=== PATIENT | male | born 1980 | race Caucasian/White ===

== ENCOUNTER 2022-12-06 13:15 | Outpatient (RCR) | payer OTHER, SELFPAY ==
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
== END 2023-02-20 11:12 | disposition home or self-care (01) ==
PROVIDERS: Visit Provider Family Medicine
DX: M54.2 Cervicalgia (principal); Z51.89 Encounter for other specified aftercare
CPT/HCPCS: 97110; 97140; 97162

== ENCOUNTER 2024-02-05 05:18 | Emergency (ER) | payer BC, SELFPAY ==
[2024-02-05 05:21] VITALS: BP 148/94; PULSE 93; RESP 16; TEMP 36.6; O2SAT 98; BMI 22.4
--- NOTE | 2024-02-05 05:36 | CRLHL7_ITS ---
For Patients: As a result of the Century Cures Act, medical imaging exams and procedure reports are released immediately into your electronic medical record. You may view this report before your referring provider. If you have questions, please contact your health care provider. INDICATION: Left-sided chest pain COMPARISON: March 28, 2023 TECHNIQUE: PA and lateral views of the chest were acquired FINDINGS: TUBES AND LINES: None. HEART AND MEDIASTINUM: The heart size is normal. The mediastinal contour appears normal for patient age. LUNGS AND PLEURAL SPACES: The lungs appear normal.The pleural spaces are unremarkable. OSSEOUS STRUCTURES: Age-appropriate appearance. No acute focal finding. IMPRESSION: No evidence of active pulmonary disease. Dictated by Oleg Randle MD @ 02/05/2024 5:59:52 AM (Electronically Signed)
--- NOTE | 2024-02-05 05:45 | ED.CHESTPAIN ---
HPI - Chest Pain General Date Seen: 02/05/24 Chief Complaint: Chest Pain Stated Complaint: Chest pain down arm Time Seen by Provider: 02/05/24 05:26 Source: patient Mode of arrival: ambulatory Limitations: no limitations History of Present Illness HPI narrative: Patient is a 43-year-old male presenting to the emergency department for chest pain. States chest pain started around 05:00. It is in his left chest and radiates down his left arm. Describes is the dull sensation mostly other than a stabbing sensation to his left upper trapezius region. Denies having symptoms like this before although he has had chest pain related to anxiety in the past. Does state now he is feeling some symptoms in his right chest also but he thinks that is more of anxiety. Initially was having some shortness of breath that has since resolved. No history of blood clots. Has not noticed any lower extremity swelling. Denies hemoptysis. Has had a cough recently but states around this family is having some upper respiratory in symptoms. The cough has since resolved. Denies any hormone use or recent surgeries. Denies fevers, chills, headache, lightheadedness, dizziness, weakness, numbness, abdominal pain, diarrhea, constipation. No other concerns noted Related Data Home Medications ?Medication ?Instructions ?Recorded ?Confirmed tadalafil .ROUTE 02/05/24 Allergies Allergy/AdvReac Type Severity Reaction Status Date / Time Penicillins Allergy Unknown Verified 04/05/23 10:56 Review of Systems Status of ROS Reports: 10 or more systems reviewed and unremarkable except as noted in History and below [facility] Social History Smoking Status: Never smoker Do you use any of these nicotine containing products: None Second hand tobacco smoke exposure: No Non-prescribed substance use: denies use Exam Narrative Exam Narrative: Const: Well-nourished, Well-developed, in mild distress Eyes: PERRL, no conjunctival injection, and symmetrical lids HENT: Atraumatic external nose and ears. Moist mucous membranes. Neck: Symmetric, trachea midline, No thyromegaly. CVS: RRR, No murmurs or gallops. Peripheral pulses 2+ and equal in all extremities RESP: Unlabored respiratory effort. Clear to auscultation bilaterally. GI: Nontender/Nondistended, No rebound or guarding. MSK:Extremities w/o deformity, Normal Active ROM Skin: Warm, Dry. No rashes or lesions. Neuro: Normal Muscle tone, No focal neurological deficits. Psych: Awake, Alert, & Oriented x3. Appropriate mood and affect. Const Vital Signs, click to edit/add: Vital Signs - 24 hr 02/05/24 05:21 02/05/24 07:44 Temperature 97.9 F Pulse Rate [Pulse Oximeter] 93 74 Respiratory Rate 16 16 Blood Pressure [Right Upper Arm] 148/94 H 125/76 Pulse Oximetry 98 97 Oxygen Delivery Method Room Air Room Air Course Vital Signs Vital signs: Initial Vital Signs Temperature 97.9 F 02/05/24 05:21 Temperature Source Temporal Artery Scan 02/05/24 05:21 Pulse Rate 93 02/05/24 05:21 Respiratory Rate 16 02/05/24 05:21 Blood Pressure 148/94 H 02/05/24 05:21 Blood Pressure Mean 112 H 02/05/24 05:21 Blood Pressure Position Sitting 02/05/24 05:21 Pulse Oximetry 98 02/05/24 05:21 Oxygen Delivery Method Room Air 02/05/24 05:21 Vital Signs Temperature 97.9 F 02/05/24 05:21 Pulse Rate 93 02/05/24 05:21 Respiratory Rate 16 02/05/24 05:21 Blood Pressure 148/94 H 02/05/24 05:21 Pulse Oximetry 98 02/05/24 05:21 Oxygen Delivery Method Room Air 02/05/24 05:21 Temperature 97.9 F 02/05/24 05:21 Pulse Rate 74 02/05/24 07:44 Respiratory Rate 16 02/05/24 07:44 Blood Pressure 125/76 02/05/24 07:44 Pulse Oximetry 97 02/05/24 07:44 Oxygen Delivery Method Room Air 02/05/24 07:44 Medications Administered Medications: Discontinued Medications Generic Name Dose Route Start Last Admin Trade Name Freq PRN Reason Stop Dose Admin Ketorolac Tromethamine 15 mg 02/05/24 05:36 02/05/24 06:14 Ketorolac 15 Mg/Ml Inj IVP 02/05/24 05:37 15 mg ONCE ONE Administration MDM - Chest Pain MDM Narrative Medical decision making narrative: Patient is a 43-year-old male presenting for chest pain. The differential diagnosis of chest pain is broad and includes common etiologies such as musculoskeletal strain, GERD, pneumonia, etc. More serious etiologies considered include PE, coronary artery disease, pneumothorax, aortic dissection, aortic aneurysm. Chest pain was not reproducible with palpation. He can be PERCed out and PE seems unlikely. Will do EKG and troponins to the for signs of ACS. Chest x-ray will be ordered to look for signs of pneumonia pneumothorax for it he is otherwise stable aortic dissection and aortic aneurysm seems unlikely. Will also order BMP, CBC, viral swab. Toradol will be ordered for pain. Lab work returned showing no concerning abnormalities. EKG shows no concerning findings. He is feeling better after the Toradol. Chest x-ray reviewed by myself and the radiologist shows no concerning findings. Repeat troponin also within normal limits. At this point I do not know exactly what is causing his pain but not see any emergent issues. He is safe for discharge. He is agreeable to this plan. Lab Data Labs: Lab Results 02/05/24 02/05/24 02/05/24 Range/Units 05:36 05:40 07:36 WBC 4.76 (4.50-11.00) K/uL RBC 4.80 (4.30-5.90) m/uL Hgb 15.3 (13.5-17.5) gm/dL Hct 45.1 (37.0-53.0) % MCV 94 (80-100) fL MCH 32 (26-34) pg MCHC 34 (32-36) gm/dL RDW Coeff of Evangelist 12.4 (11.5-15.5) % Plt Count 71 L (140-440) K/uL Neut % (Auto) 42.5 (42.0-72.0) % Lymph % (Auto) 42.2 (20-44) % [place] % (Auto) 12.8 H (0.0-11.0) % Eos % (Auto) 1.5 (0.0-7.0) % Baso % (Auto) 0.8 (0.0-3.0) % Neut # (Auto) 2.02 (1.7-7.0) K/uL Lymph # (Auto) 2.01 (0.90-2.90) K/uL [place] # (Auto) 0.60 (0.00-0.90) K/UL Eos # (Auto) 0.07 (0.00-0.50) K/uL Baso # (Auto) 0.04 (0.00-0.30) K/uL Abs Immat Gran (auto) 0.01 (0.00-0.30) K/uL Imm/Tot Granulo (auto) 0.2 % Sodium 137 (135-149) mmol/L Potassium 4.1 (3.6-5.1) mmol/L Chloride 105 (96-114) mmol/L Carbon Dioxide 25 (20-32) mmol/L Anion Gap 7 (7-15) mEq/L BUN 11 (5-24) mg/dL Creatinine 0.8 (0.5-1.5) mg/dL Estimated Creat Clear 127.18 Estimated GFR 111 ml/min Glucose 105 (60-115) mg/dL Calcium 8.9 (8.4-10.6) mg/dL SARS-CoV-2 (PCR) Negative SARS-CoV-2 (Negative) Influenza Type A (PCR) Negative PCR FLU A (Negative) Influenza Type B (PCR) Negative PCR FLU B (Negative) RSV (PCR) Negative PCR RSV (Negative) POC Troponin I 0.00 L 0.00 L (0.01-0.04) ng/ml Imaging Data Chest x-ray: Radiologist's impression: No evidence of active pulmonary disease. Dictated by Oleg Randle MD @ 02/05/2024 5:59:52 AM ECG Data Attestation: I personally reviewed and interpreted this ECG as follows: Prior ECG tracings: not available for review Interpretation: Normal sinus rhythm with rate of 90 beats per minute, normal intervals, normal axis, no ST or T-wave abnormalities. Discharge Plan Discharge Clinical Impression: Atypical chest pain Patient Disposition: Home, Self-Care Condition: Stable Instructions: Noncardiac Chest Pain (ED) Additional Instructions: I am not sure was causing chest pain at this time but we were able to rule out any emergent issues. If it persist follow-up with your primary care provider. Return to emergency department for new or worsening symptoms. Prescriptions: No Action tadalafil [Cialis] .ROUTE Follow Up/Referrals: Provider,Not a Local [Primary Care Provider] - Stand Alone Forms: [place] Info Instructions
[2024-02-05 05:50] LABS: Basophils Absolute Auto 0.04 K/uL (0.00-0.30); Basophils Percent Auto 0.8 % (0.0-3.0); Eosinophils Absolute Auto 0.07 K/uL (0.00-0.50); Eosinophils Percent Auto 1.5 % (0.0-7.0); Hematocrit 45.1 % (37.0-53.0); Hemoglobin* 15.3 gm/dL (13.5-17.5); Immature Granulocytes Abs Auto 0.01 K/uL (0.00-0.30); Immature Granulocytes Pct Auto 0.2 %; Lymphocytes Absolute Auto 2.01 K/uL (0.90-2.90); Lymphocytes Percent Auto 42.2 % (20-44); Mean Corpuscular HGB Conc 34 gm/dL (32-36); Mean Corpuscular Hemoglobin 32 pg (26-34); Mean Corpuscular Volume 94 fL (80-100); Monocytes Percent Auto 12.8 % (0.0-11.0); Neutrophils Absolute Auto 2.02 K/uL (1.7-7.0); Neutrophils Percent Auto 42.5 % (42.0-72.0); Platelet Count* 71 K/uL (140-440); RDW Coefficient of Variation % 12.4 % (11.5-15.5); White Blood Count* 4.76 K/uL (4.50-11.00)
[2024-02-05 05:53] LABS: Slide Review Reflex No
[2024-02-05 06:05] LABS: Chloride* 105 mmol/L (96-114); Potassium* 4.1 mmol/L (3.6-5.1); Sodium* 137 mmol/L (135-149)
[2024-02-05 06:08] LABS: Anion Gap 7 mEq/L (7-15); Carbon Dioxide* 25 mmol/L (20-32); Creatinine* 0.8 mg/dL (0.5-1.5); Est. Creatinine Clearance* 127.18; Estimated Glomerular Filt Rate 111 ml/min
[2024-02-05 06:09] LABS: Blood Urea Nitrogen* 11 mg/dL (5-24); Calcium* 8.9 mg/dL (8.4-10.6); Glucose* 105 mg/dL (60-115)
[2024-02-05] MEDS: KETOROLAC 15 MG/ML inj IVP (06:14)
[2024-02-05 06:28] LABS: PCR FLU A Negative PCR FLU A (Negative); PCR FLU B Negative PCR FLU B (Negative); PCR RSV Negative PCR RSV (Negative); SARS PCR* Negative SARS-CoV-2 (Negative)
[2024-02-05 07:44] VITALS: BP 125/76; PULSE 74; RESP 16; O2SAT 97
== END 2024-02-05 08:11 | disposition home or self-care (01) ==
PROVIDERS: Emergency Provider Student in an Organized Health Care Education/Training Program
DX: R07.89 Other chest pain (principal)
CPT/HCPCS: 36415; 71046; 80048; 84484; 85025; 87631; 93005; 96374; 99284; 99285; J1885